=== PATIENT | female | born 1955 | race Hispanic/Latino ===

== ENCOUNTER 2017-03-31 14:17 | Emergency (ER) | payer BC, OTHER ==
[2017-03-31] MEDS ORDERED: ASPIRIN 81MG TAB.CHEW ONE (14:32)
[2017-03-31 15:28] LABS: BASOPHILS % (AUTO) 1.2 % (0.0-5.0); EOSINOPHILS % (AUTO) 4.6 % (0.0-8.0); HEMATOCRIT 43.6 % (36-48); LYMPHOCYTES % (AUTO) 50.2 % (21.0-51.0); MEAN CORPUSCULAR HEMOGLOBIN 29.4 pg (27.0-33.0); MEAN CORPUSCULAR HGB CONC 33.7 g/dL (32.0-36.0); MEAN CORPUSCULAR VOLUME 87.3 fL (79-99); PLATELET COUNT (AUTO) 232 K/uL (130-400); RED BLOOD CELL COUNT(AUTO) 4.99 MIL/uL (4.00-5.50); RED CELL DISTRIBUTION WIDTH 13.4 % (11.0-15.5); WHITE BLOOD COUNT (AUTO) 6.3 K/uL (4.8-10.8)
[2017-03-31 16:02] LABS: B-TYPE NATRIURETIC PEPTIDE 109 pg/mL (0-100)
[2017-03-31 16:11] LABS: CARBON DIOXIDE 26 mmol/L (21-32); CHLORIDE 104 mmol/L (101-111); CREATININE 0.8 mg/dL (0.5-1.5); GLOMERULAR FILTR. RATE CALC 78 mL/min (>60); GLUCOSE,RANDOM 108 mg/dL (70-105); POTASSIUM 3.6 mmol/L (3.5-5.1); SODIUM SERUM 142 mmol/L (136-145); UREA NITROGEN, BLOOD 11 mg/dL (7-18)
[2017-03-31 16:24] LABS: ALANINE AMINOTRANSFERASE 44 U/L (12-78); ALBUMIN 3.6 g/dL (3.5-5.0); ASPARTATE AMINOTRANSFERASE 25 U/L (10-37); BILIRUBIN,TOTAL 0.3 mg/dL (0.2-1.0); CREATINE KINASE MB < 0.5 ng/mL (0.5-3.6); CREATINE KINASE, TOTAL 73 U/L (21-232); MYOGLOBIN 19 ng/mL (10-92); TOTAL PROTEIN, SERUM 7.8 g/dL (6.0-8.3)
[2017-03-31 16:28] LABS: INR 1.02 (0.85-1.15); PARTIAL THROMBOPLASTIN TIME 25.4 SEC (26.3-35.5); PROTHROMBIN TIME 10.7 SEC (9.6-11.6)
== END 2017-03-31 17:54 | disposition home or self-care (01) ==
LOC: EDH 14:17
DX: F41.1 Generalized anxiety disorder (principal); R07.89 Other chest pain; R06.00 Dyspnea, unspecified; E03.9 Hypothyroidism, unspecified; E11.9 Type 2 diabetes mellitus without complications
CPT/HCPCS: 36415; 71045; 80053; 82550; 82553; 83874; 83880; 84484; 85025; 85610; 85730; 93005; 94761

== ENCOUNTER 2017-06-21 15:47 | Emergency (ER) | payer SELFPAY ==
[2017-06-21] MEDS ORDERED: SODIUM CHLORIDE 0.9% 1000ML 1,000 ML IV ONE (16:17)
[2017-06-21 16:24] LABS: APPEARANCE,URINE Clear (CLEAR); BASOPHILS % (AUTO) 1.4 % (0.0-5.0); BILIRUBIN,URINE Negative (NEGATIVE); COLOR,URINE Yellow (YELLOW); EOSINOPHILS % (AUTO) 5.3 % (0.0-8.0); GLUCOSE, URINE (UA) Negative (NEGATIVE); HEMATOCRIT 40.9 % (36-48); KETONES,URINE Negative (NEGATIVE); LEUKOCYTE ESTERASE ,URINE Negative (NEGATIVE); LYMPHOCYTES % (AUTO) 37.1 % (21.0-51.0); MEAN CORPUSCULAR HEMOGLOBIN 30.4 pg (27.0-33.0); MEAN CORPUSCULAR HGB CONC 34.9 g/dL (32.0-36.0); MEAN CORPUSCULAR VOLUME 87.1 fL (79-99); MONOCYTES % (AUTO) 11.4 % (3.0-13.0); NEUTROPHILS % (AUTO) 44.8 % (40.0-77.0); NITRATE,URINE Negative (NEGATIVE); NUCLEATED RED BLOOD CELLS 0.1 % (0.0-0.19); OCCULT BLOOD,URINE Negative (NEGATIVE); PLATELET COUNT (AUTO) 230 K/uL (130-400); PROTEIN,URINE Negative (NEGATIVE); RED CELL DISTRIBUTION WIDTH 13.9 % (11.0-15.5); UROBILINOGEN,URINE 0.2 mg/dL (0.2-1.0)
[2017-06-21 16:32] LABS: ACETONE,BLOOD NEGATIVE (NEGATIVE); CARBON DIOXIDE 28 mmol/L (21-32); CHLORIDE 104 mmol/L (101-111); CREATININE 0.9 mg/dL (0.5-1.5); GLOMERULAR FILTR. RATE CALC 68 mL/min (>60); GLUCOSE,RANDOM 134 mg/dL (70-105); SODIUM SERUM 141 mmol/L (136-145); UREA NITROGEN, BLOOD 15 mg/dL (7-18)
[2017-06-21 16:37] LABS: ALANINE AMINOTRANSFERASE 60 U/L (12-78); ALBUMIN 3.4 g/dL (3.5-5.0); ASPARTATE AMINOTRANSFERASE 42 U/L (10-37); BILIRUBIN,TOTAL 0.2 mg/dL (0.2-1.0); TOTAL PROTEIN, SERUM 7.6 g/dL (6.0-8.3)
[2017-06-21] MEDS ORDERED: DIAZEPAM 5 MG TABLET ONE (17:24)
[2017-06-21] MEDS ORDERED: KETOROLAC TROMETHAMINE 15MG/ML ONE (17:24)
== END 2017-06-21 19:15 | disposition home or self-care (01) ==
LOC: EDH 15:47
DX: G44.209 Tension-type headache, unspecified, not intractable (principal); E11.9 Type 2 diabetes mellitus without complications; E03.9 Hypothyroidism, unspecified
CPT/HCPCS: 36415; 80053; 81003; 82009; 85025; 96361; 96374; 99284; J1885; J7030

== ENCOUNTER 2017-11-26 11:54 | Emergency (ER) | payer OTHER ==
[2017-11-26] MEDS ORDERED: IBUPROFEN 600 MG TABLET ONE (13:22)
== END 2017-11-26 14:31 | disposition home or self-care (01) ==
LOC: EDH 11:54
DX: S43.492A Other sprain of left shoulder joint, initial encounter (principal); E11.9 Type 2 diabetes mellitus without complications; E03.9 Hypothyroidism, unspecified; V49.49XA Driver injured in collision with other motor vehicles in traffic accident, initial encounter; Y93.89 Activity, other specified; Y92.89 Other specified places as the place of occurrence of the external cause; Y99.8 Other external cause status
CPT/HCPCS: 73030

== ENCOUNTER → 2022-05-12 | Outpatient (CLI) | payer OTHER | END | disposition home or self-care (01) | LOC: RAH 13:59 | PROVIDERS: ATTEND Nurse Practitioner Family | DX: M19.011 Primary osteoarthritis, right shoulder (principal) | CPT/HCPCS: 73030 ==

== ENCOUNTER → 2023-01-22 | Outpatient (CLI) | payer OTHER | END | disposition home or self-care (01) | LOC: RAH 10:12 | PROVIDERS: ATTEND Nurse Practitioner Family | DX: M19.031 Primary osteoarthritis, right wrist (principal); M25.511 Pain in right shoulder; M25.531 Pain in right wrist; M19.011 Primary osteoarthritis, right shoulder; M47.812 Spondylosis without myelopathy or radiculopathy, cervical region; M48.02 Spinal stenosis, cervical region | CPT/HCPCS: 72040; 73030; 73110 ==

== ENCOUNTER → 2023-05-15 | Outpatient (CLI) | payer OTHER | END | disposition home or self-care (01) | LOC: RAH 12:26 | DX: J84.89 Other specified interstitial pulmonary diseases (principal); J45.41 Moderate persistent asthma with (acute) exacerbation; M47.815 Spondylosis without myelopathy or radiculopathy, thoracolumbar region | CPT/HCPCS: 71046 ==

== ENCOUNTER → 2023-10-09 | Outpatient (CLI) | payer OTHER | END | disposition home or self-care (01) | LOC: RAH 11:07 | DX: M47.812 Spondylosis without myelopathy or radiculopathy, cervical region (principal); M25.78 Osteophyte, vertebrae; M54.2 Cervicalgia; R51.9 Headache, unspecified | CPT/HCPCS: 72040 ==

== ENCOUNTER 2024-01-06 14:48 | Emergency (ER) | payer OTHER ==
[~2024-01-06] VITALS: Ht 152.4 cm; Wt 63.5 kg
[2024-01-06 15:39] LABS: COVID19 (SARS ANTIGEN RAPID) PRESUMPTIVE NEGATIVE (NEGATIVE); INFLUENZA TYPE A Negative For Type A (NEGATIVE); INFLUENZA TYPE B Negative For Type B (NEGATIVE)
[2024-01-06] MEDS: levoFLOXacin 750 MG TABLET PO SCH (16:07)
[2024-01-06] MEDS: dexaMETHasone SOD PHOSPHATE 4 MG/ML 1ML VIAL IM ONE (16:21)
[2024-01-06] MEDS: ALBUTEROL 0.083% 2.5 MG/3 ML INH IH ONE (16:34)
[2024-01-06 16:38] VITALS: PULSE 92; RESP 19
[2024-01-06] MEDS ORDERED: LEVO-70 PO (17:33)
[2024-01-06] MEDS ORDERED: AUD IH (17:33)
[2024-01-06] MEDS ORDERED: BENZ-39 PO (17:33)
[2024-01-06 17:38] VITALS: BP 151/72; PULSE 88; RESP 18; TEMP 98.6; O2SAT 99
== END 2024-01-06 17:41 | disposition home or self-care (01) ==
LOC: EDH 14:48
DX: J42 Unspecified chronic bronchitis (principal); E03.9 Hypothyroidism, unspecified; E11.9 Type 2 diabetes mellitus without complications; Z20.822 Contact with and (suspected) exposure to COVID-19
CPT/HCPCS: 99284; 71045; 87426; 87804 ×2; 96372; 94640; J1100